=== PATIENT | female | born 1990 | race Two or more races ===

== ENCOUNTER → 2020-07-12 | Outpatient (CLI) | payer MEDICAID ==
[2020-07-12 08:23] LABS: Basophils # (auto) 0 10 ^3/uL (0-0.2); Basophils % (auto) 0.8 % (0.0-2.0); Eosinophils # (auto) 0.2 10 ^3/uL (0-0.8); Eosinophils % (auto) 2.8 % (0.0-7.0); Hematocrit 39.9 % (36.0-46.0); Hemoglobin 13.2 g/dL (12.2-16.2); Lymphocytes # (auto) 1.6 10 ^3/uL (0.4-5.4); Lymphocytes % (auto) 27.2 % (10.0-50.0); Mean Corpuscular Hemoglobin 29.4 pg (28.0-32.0); Mean Corpuscular Hgb Conc. 33.1 g/dL (32.0-36.0); Mean Corpuscular Volume 88.9 fL (80.0-100.0); Monocytes # (auto) 0.6 10 ^3/uL (0-1.3); Monocytes % (auto) 9.8 % (0.0-12.0); Neutrophils # (auto) 3.4 10 ^3/uL (1.6-8.6); Neutrophils % (auto) 59.4 % (37.0-80.0); Nucleated Red Blood Cells % 0.1 %; Platelet Count (auto) 218 10^3/uL (140-450); Red Blood Cells 4.48 10^6/uL (4.0-5.20); Red Cell Distribution Width 14.7 % (11.8-14.3); White Blood Cell 5.8 10^3/uL (4.4-10.8)
[2020-07-12 08:53] LABS: BUN/Creatinine Ratio 19.2; Calcium 9.1 mg/dL (8.5-10.1); Potassium 3.9 mmol/L (3.5-5.1)
[2020-07-12 08:58] LABS: Bilirubin, Total 0.9 mg/dL (0.2-1.0); Total Protein 7.2 g/dL (6.4-8.2)
[2020-07-12 09:06] LABS: Urine Bacteria MOD /hpf (None Seen); Urine Blood Negative /uL (Negative); Urine Hyaline Cast FEW /lpf (0 - 2); Urine Mucus FEW (None Seen); Urine Specific Gravity 1.032 (1.001-1.035); Urine WBC 19 /hpf (0 - 5)
== END | disposition home or self-care (01) ==
LOC: LAB 08:07
PROVIDERS: ATTEND Internal Medicine
DX: Z00.00 Encounter for general adult medical examination without abnormal findings (principal)
CPT/HCPCS: 36415; 80053; 80061; 81001; 83036; 85025

== ENCOUNTER → 2024-01-21 | Outpatient (CLI) | payer MEDICAID ==
[2024-01-21 11:10] LABS: Basophils # (auto) 0 10 ^3/uL (0-0.2); Basophils % (auto) 0.3 % (0.0-2.0); Eosinophils # (auto) 0 10 ^3/uL (0-0.8); Eosinophils % (auto) 0.4 % (0.0-7.0); Hematocrit 33.2 % (36.0-46.0); Hemoglobin 11.5 g/dL (12.2-16.2); Lymphocytes # (auto) 1.7 10 ^3/uL (0.4-5.4); Mean Corpuscular Hemoglobin 32.6 pg (28.0-32.0); Mean Corpuscular Hgb Conc. 34.6 g/dL (32.0-36.0); Mean Corpuscular Volume 94.2 fL (80.0-100.0); Monocytes # (auto) 0.6 10 ^3/uL (0-1.3); Monocytes % (auto) 5.6 % (0.0-12.0); Neutrophils # (auto) 7.7 10 ^3/uL (1.6-8.6); Neutrophils % (auto) 76.7 % (37.0-80.0); Red Blood Cells 3.52 10^6/uL (4.0-5.20); Red Cell Distribution Width 13.1 % (11.8-14.3); White Blood Cell 10.1 10^3/uL (4.4-10.8)
[2024-01-21 11:59] LABS: Albumin 3.9 g/dL (3.2-4.8); Alkaline Phosphatase 41 U/L (46-116); Anion Gap 6 (5-15); Aspartate Aminotransferase 8 U/L (13-40); Calcium 9.3 mg/dL (8.5-10.1); Carbon Dioxide 24 mmol/L (20-30); Chloride 107 mmol/L (98-107); Cholesterol 176 mg/dL (< 200); Glucose 83 mg/dL (74-106); HDL Cholesterol 83 mg/dL (40-59); LDL Cholesterol 76 mg/dL (< 100); Potassium 3.9 mmol/L (3.5-5.1); Sodium 137 mmol/L (136-145); Triglycerides 73 mg/dL (< 150)
[2024-01-21 12:00] LABS: Alanine Aminotransferase 9 U/L (7-40); Bilirubin, Total 0.3 mg/dL (0.2-1.0); Blood Urea Nitrogen < 5 mg/dL (9-23); Total Protein 6.2 g/dL (5.7-8.2)
== END | disposition home or self-care (01) ==
LOC: LAB 10:41
PROVIDERS: ATTEND Internal Medicine
DX: Z32.01 Encounter for pregnancy test, result positive (principal)
CPT/HCPCS: 36415; 80053; 80061; 82306; 82607; 83036; 84443; 85025

== ENCOUNTER → 2024-06-03 | Outpatient (CLI) | payer MEDICAID ==
[2024-06-03 10:42] LABS: Basophils # (auto) 0 10 ^3/uL (0-0.2); Basophils % (auto) 0.3 % (0.0-2.0); Eosinophils # (auto) 0.1 10 ^3/uL (0-0.8); Eosinophils % (auto) 1.3 % (0.0-7.0); Hematocrit 37.5 % (36.0-46.0); Lymphocytes % (auto) 20.1 % (10.0-50.0); Mean Corpuscular Hemoglobin 32.6 pg (28.0-32.0); Mean Corpuscular Hgb Conc. 34.6 g/dL (32.0-36.0); Mean Corpuscular Volume 94.1 fL (80.0-100.0); Monocytes # (auto) 0.9 10 ^3/uL (0-1.3); Monocytes % (auto) 8.7 % (0.0-12.0); Neutrophils # (auto) 6.9 10 ^3/uL (1.6-8.6); Neutrophils % (auto) 69.6 % (37.0-80.0); Platelet Count (auto) 181 10^3/uL (140-450); Red Blood Cells 3.98 10^6/uL (4.0-5.20); Red Cell Distribution Width 13.1 % (11.8-14.3); White Blood Cell 9.9 10^3/uL (4.4-10.8)
[2024-06-04 06:06] LABS: RPR Non Reactive (Non Reactive)
[2024-06-04 20:06] LABS: Chlamydia Trachomatis, NAA Negative (Negative); Neisseria gonorrhoeae, NAA Negative (Negative)
== END | disposition home or self-care (01) ==
LOC: LAB 10:06
PROVIDERS: ATTEND Obstetrics & Gynecology
DX: Z34.00 Encounter for supervision of normal first pregnancy, unspecified trimester (principal); Z72.51 High risk heterosexual behavior
CPT/HCPCS: 36415; 85025; 86592

== ENCOUNTER 2024-06-06 10:01 | Observation (INO) | payer MEDICAID ==
[~2024-06-06] VITALS: Ht 167 cm; Wt 79.8 kg
[2024-06-06] MEDS ORDERED: PREN-96 PO (11:35)
== END 2024-06-06 11:55 | disposition home or self-care (01) ==
LOC: LDRP 10:01
PROVIDERS: ADMIT Obstetrics & Gynecology; ATTEND Obstetrics & Gynecology
DX: O60.03 Preterm labor without delivery, third trimester (principal); Z3A.40 40 weeks gestation of pregnancy; Z79.899 Other long term (current) drug therapy; Z98.890 Other specified postprocedural states
CPT/HCPCS: 59025; 76818; 81002; 94760; G0378

== ENCOUNTER 2024-06-07 21:54 | Inpatient (IN) | payer MEDICAID ==
[~2024-06-07] VITALS: Ht 167 cm; Wt 79.8 kg
[~2024-06-07 21:54] MED LIST: PREN-96 PO
[2024-06-07] MEDS ORDERED: BUTORPHANOL TARTRATE 2 MG/1 ML VIAL IV PRN ×2 (22:00)
[2024-06-07 23:21] LABS: Basophils # (auto) 0 10 ^3/uL (0-0.2); Basophils % (auto) 0.2 % (0.0-2.0); Eosinophils # (auto) 0.1 10 ^3/uL (0-0.8); Eosinophils % (auto) 1.3 % (0.0-7.0); Hematocrit 33.9 % (36.0-46.0); Hemoglobin 11.8 g/dL (12.2-16.2); Lymphocytes # (auto) 2.4 10 ^3/uL (0.4-5.4); Lymphocytes % (auto) 23.2 % (10.0-50.0); Mean Corpuscular Hemoglobin 32.4 pg (28.0-32.0); Mean Corpuscular Hgb Conc. 34.7 g/dL (32.0-36.0); Mean Corpuscular Volume 93.4 fL (80.0-100.0); Monocytes # (auto) 0.9 10 ^3/uL (0-1.3); Monocytes % (auto) 8.6 % (0.0-12.0); Neutrophils # (auto) 6.8 10 ^3/uL (1.6-8.6); Neutrophils % (auto) 66.7 % (37.0-80.0); Platelet Count (auto) 181 10^3/uL (140-450); Red Blood Cells 3.63 10^6/uL (4.0-5.20); Red Cell Distribution Width 13.3 % (11.8-14.3); White Blood Cell 10.1 10^3/uL (4.4-10.8)
[2024-06-07 23:28] LABS: Urine Amorphous Crystal FEW /hpf (None Seen); Urine Bacteria FEW /hpf (None Seen); Urine Blood Negative /uL (Negative); Urine Clarity Turbid (Clear); Urine Color Yellow (Yellow); Urine Mucus FEW (None Seen); Urine Protein, UAD TRACE (Negative); Urine Specific Gravity 1.026 (1.001-1.035); Urine Urobilinogen Normal (Negative); Urine WBC 3 /hpf (0 - 5)
[2024-06-07 23:36] LABS: INR 0.94 (0.9-1.15); Partial Thromboplastin Time 25.4 SEC (24.5-34.5)
[2024-06-07 23:37] LABS: Amphetamine Screen, Urine Neg (NEGATIVE); Barbiturate Scree,Urine Neg (NEGATIVE); Benzodiazephine Screen, Urine Neg (NEGATIVE); Cannabinoid Screen, Urine Neg (NEGATIVE); Cocaine Screen, Urine Neg (NEGATIVE); Opiate Scree,Urine Neg (NEGATIVE); Phencyclidine Screen, Urine Neg (NEGATIVE)
[2024-06-07 23:39] LABS: Albumin 3.7 g/dL (3.2-4.8); Alkaline Phosphatase 118 U/L (46-116); Anion Gap 9 (5-15); Aspartate Aminotransferase 14 U/L (13-40); BUN/Creatinine Ratio 10.9 (10.0-20.0); Blood Urea Nitrogen 6 mg/dL (9-23); Calcium 9.5 mg/dL (8.7-10.4); Carbon Dioxide 20 mmol/L (20-31); Chloride 111 mmol/L (98-107); Glucose 113 mg/dL (74-106); Potassium 3.3 mmol/L (3.5-5.1); Sodium 140 mmol/L (136-145)
[2024-06-07 23:40] LABS: Bilirubin, Total 0.3 mg/dL (0.2-1.0); Total Protein 5.9 g/dL (5.7-8.2)
[2024-06-07 23:46] LABS: Alanine Aminotransferase < 9 U/L (7-40)
[2024-06-08] MEDS: LACTATED RINGER'S 1,000 ML IV SCH (00:02)
[2024-06-08] MEDS: PHISODERM TOP SOLN 240ML BTL TOP PRN (00:40)
[2024-06-08] MEDS: WITCH HAZEL-GLYCERIN PAD TOP PRN (00:40)
[2024-06-08] MEDS: DERMOPLAST 60ML BOTTLE TOP PRN (00:40)
[2024-06-08] MEDS: POTASSIUM CHL 20 Meq TABLET PO ONE (00:41)
[2024-06-08] MEDS: miSOPROStol 50 MCG per PRE-CUT 1/2 TAB PO PRN (00:41)
[2024-06-08] MEDS: ONDANSETRON HCL 4 MG/2 ML VIAL IV PRN (17:11)
[2024-06-08] MEDS: hydrOXYzine 25 MG TAB or CAP PO ONE (20:16)
[2024-06-08] MEDS: MEPERIDINE HCL (50 MG/ML) 1 ML VIAL IV ONE (20:17)
[2024-06-08] MEDS: LACTATED RINGER'S 1,000 ML IV ONE (21:15)
[2024-06-08] MEDS ORDERED: TERBUTALINE SULFATE 1 MG/ML 1ML VIAL SC PRN (22:45)
[2024-06-08] MEDS: PENICILLIN G POT 5MIL/D5 50ML 50 ML IV ONE (23:05)
[2024-06-09] MEDS: ROPIVACAINE HCL 200 ML ONE ×2 (01:33→10:46)
[2024-06-09] MEDS: LACT. RINGERS/OXYTOCIN 20UNITS 1,000 ML IV SCH (01:34)
[2024-06-09] MEDS: PENICILLIN G POTASSIUM 2,500,000 UNITS in D5W 5% 50 ML IV SCH (02:47)
[2024-06-09] MEDS ORDERED: SODIUM CHLORIDE 0.9% 300 ML IUPC ONE (03:45)
[2024-06-09] MEDS ORDERED: SODIUM CHLORIDE 0.9% 1,000 ML IUPC SCH (03:45)
[2024-06-09] MEDS: ePHEDrine SULFATE 50 MG/ML AMP IV ONE (04:36)
[2024-06-09 08:06] LABS: RPR Non Reactive (Non Reactive)
[2024-06-09] MEDS: LIDOCAINE 2%HCL (LOCAL ANESTH.) INJ 20ML MDV IJ PRN (14:53)
[2024-06-09] MEDS: MINERAL OIL TOPICAL 10ml TOP ONE (14:54)
[2024-06-09] MEDS: fentaNYL CITRATE 100 MCG/2 ML VL IV ONE (15:00)
[2024-06-09] MEDS: LACT. RINGERS/OXYTOCIN 20UNITS 500 ML IV ONE ×2 (15:15→15:40)
[2024-06-09] MEDS: METHYLERGONOVINE MALEATE 0.2 MG/ML AMP IM ONE ×2 (15:17→15:18)
[2024-06-09] MEDS: LIDOCAINE HCL 2 %PF INJ 10ML AMP IJ ONE (15:18)
[2024-06-09 19:00] VITALS: BP 115/73; PULSE 100; RESP 18; TEMP 98.1; O2SAT 99
[2024-06-09] MEDS: IBUPROFEN 600 MG TAB PO PRN (19:08)
[2024-06-09] MEDS: POTASSIUM CHL 20 Meq TABLET PO ONE (20:02)
[2024-06-09] MEDS: DOCUSATE SOD 100 MG CAP PO SCH (21:49)
[2024-06-09 23:00] VITALS: BP 111/70; PULSE 88; RESP 16; TEMP 97.9; O2SAT 98
[2024-06-10] MEDS ORDERED: IBU600T PO (01:47)
[2024-06-10] MEDS ORDERED: PREN-96 PO (01:47)
[2024-06-10] MEDS ORDERED: DOCU-265 PO (01:47)
[2024-06-10 03:00] VITALS: BP 101/66; PULSE 85; RESP 18; TEMP 98.3; O2SAT 99
[2024-06-10 07:00] VITALS: BP 112/66; PULSE 82; RESP 16; TEMP 98.3; O2SAT 99
[2024-06-10 08:44] LABS: Basophils # (auto) 0 10 ^3/uL (0-0.2); Basophils % (auto) 0.2 % (0.0-2.0); Eosinophils # (auto) 0.1 10 ^3/uL (0-0.8); Eosinophils % (auto) 0.7 % (0.0-7.0); Hematocrit 30.3 % (36.0-46.0); Hemoglobin 10.3 g/dL (12.2-16.2); Lymphocytes # (auto) 2.2 10 ^3/uL (0.4-5.4); Lymphocytes % (auto) 11.7 % (10.0-50.0); Mean Corpuscular Hemoglobin 31.8 pg (28.0-32.0); Mean Corpuscular Hgb Conc. 33.9 g/dL (32.0-36.0); Mean Corpuscular Volume 93.7 fL (80.0-100.0); Monocytes # (auto) 1.5 10 ^3/uL (0-1.3); Monocytes % (auto) 7.8 % (0.0-12.0); Neutrophils % (auto) 79.6 % (37.0-80.0); Platelet Count (auto) 147 10^3/uL (140-450); Red Blood Cells 3.23 10^6/uL (4.0-5.20); Red Cell Distribution Width 13.1 % (11.8-14.3); White Blood Cell 18.8 10^3/uL (4.4-10.8)
[2024-06-10 09:03] LABS: Alkaline Phosphatase 99 U/L (46-116); Anion Gap 4 (5-15); Aspartate Aminotransferase 17 U/L (13-40); BUN/Creatinine Ratio 8.6 (10.0-20.0); Blood Urea Nitrogen 5 mg/dL (9-23); Calcium 8.9 mg/dL (8.7-10.4); Carbon Dioxide 23 mmol/L (20-31); Chloride 111 mmol/L (98-107); Glucose 102 mg/dL (74-106); Potassium 4.1 mmol/L (3.5-5.1); Sodium 138 mmol/L (136-145)
[2024-06-10 09:04] LABS: Bilirubin, Total 0.4 mg/dL (0.2-1.0); Total Protein 4.8 g/dL (5.7-8.2)
[2024-06-10 09:06] LABS: Alanine Aminotransferase < 9 U/L (7-40)
[2024-06-10 15:00] VITALS: BP 114/71; PULSE 98; RESP 16; TEMP 97.7; O2SAT 100
[2024-06-10 22:16] VITALS: BP 109/69; PULSE 96; RESP 18; TEMP 98.5; O2SAT 96
[2024-06-10 23:00] VITALS: BP 116/71; PULSE 81; RESP 18; TEMP 98.6; O2SAT 97
[2024-06-10] MEDS ORDERED: ASCO500T11 PO (23:24)
[2024-06-10] MEDS ORDERED: FER325T PO (23:24)
[2024-06-11 03:00] VITALS: BP 116/73; PULSE 101; RESP 16; TEMP 97.5; O2SAT 99
[2024-06-11] MEDS: ACETAMINOPHEN 325 MG TAB PO PRN (03:14)
[2024-06-11 07:22] VITALS: BP 127/82; PULSE 86; RESP 17; TEMP 98.1; O2SAT 99
[2024-06-11] MEDS: TETANUS-DIPTH-ACEL PERTUSSIS 0.5ML SYR Tdap IM ONE (09:51)
[2024-06-11 11:04] VITALS: BP 119/75; PULSE 87; RESP 17; TEMP 98; O2SAT 99
== END 2024-06-11 11:20 | disposition home or self-care (01) | DRG 560 ==
LOC: LDRP 21:54
PROVIDERS: ADMIT Obstetrics & Gynecology; ATTEND Obstetrics & Gynecology
PROC: 10E0XZZ Delivery of Products of Conception, External Approach (ICD-10-PCS; principal; 2024-06-09)
PROC: 0HQ9XZZ Repair Perineum Skin, External Approach (ICD-10-PCS; 2024-06-09)
PROC: 3E0DXGC Introduction of Other Therapeutic Substance into Mouth and Pharynx, External Approach (ICD-10-PCS; 2024-06-09)
PROC: 3E0R3BZ Introduction of Anesthetic Agent into Spinal Canal, Percutaneous Approach (ICD-10-PCS; 2024-06-09)
PROC: 00HU33Z Insertion of Infusion Device into Spinal Canal, Percutaneous Approach (ICD-10-PCS; 2024-06-09)
DX: O48.0 Post-term pregnancy (principal); Z37.0 Single live birth; O69.81X0 Labor and delivery complicated by cord around neck, without compression, not applicable or unspecified; O99.824 Streptococcus B carrier state complicating childbirth; Z3A.40 40 weeks gestation of pregnancy; O70.0 First degree perineal laceration during delivery
CPT/HCPCS: 36415; 59025; 59200; 59409; 62282; 76805; 80053; 80307; 81001; 85025; 85610; 85730; 86592; 86850; 86900; 86901; 90715; 94760; 94762; 96360; 96361; 96365; 96366; 96374; G0378; J2405; J2540; J2590; J7060